=== PATIENT | male | born 1945 | race Caucasian/White ===

== ENCOUNTER 2018-03-23 05:31 | Emergency (ER) | payer MEDICARE, OTHER ==
[~2018-03-23] VITALS: Ht 175.3 cm; Wt 72.6 kg
[2018-03-23 05:40] VITALS: BP 171/94
[2018-03-23] MEDS ORDERED: PRINIVIL10 MG PO (05:47)
[2018-03-23] MEDS ORDERED: PLAVIX 75 MG TA75 M1 PO (05:48)
[2018-03-23] MEDS ORDERED: VITAMINC500 PO (05:49)
[2018-03-23] MEDS ORDERED: CRESTOR20 MG PO (05:49)
[2018-03-23] MEDS ORDERED: SUPER B COMPLE150 MG PO (05:51)
[2018-03-23] MEDS ORDERED: PRESERVISION T1 EACH PO (05:52)
== END 2018-03-23 06:35 | disposition home or self-care (01) ==
LOC: M.ERS 05:31
DX: R04.0 Epistaxis (principal); I10 Essential (primary) hypertension